=== PATIENT | male | born 1995 | race Caucasian/White ===

== ENCOUNTER 2024-05-16 07:17 | Outpatient (CLI) | payer OTHER ==
--- NOTE | 2024-05-16 15:20 | MRI Report ---
PROCEDURE: Thoracic Spine WO INDICATIONS: CHRONIC BACK PAIN TECHNIQUE: Noncontrast sagittal T1 spine echo and T2 fast spin echo, sagittal STIR, axial T1 and T2 fast spin ec ho through the thoracic spine. COMPARISON: None. FINDINGS: Image quality: Excellent. Alignment and Curvature: There is normal bony alignment. Bone Marrow: Marrow is of normal overall signal. No acute vertebral body compression fractures. Spinal Cord: Visualized spinal cord is normal in size and signal. Paraspinous Soft Tissues: No paravertebral masses. Miscellaneous: On axial images, central canal and foramina appear widely patent at all scanned level s. IMPRESSION: MRI thoracic spine without acute abnormalities or significant spondylitic changes. No si gnificant spinal canal or neuroforaminal stenosis. Reviewed by: Layton Zambrano MD on 05/16/2024 2:19 PM [facility] Approved by: Layton Zambrano MD on 05/16/2024 2:19 PM [facility] Station ID: [id number]
--- NOTE | 2024-05-16 15:38 | MRI Report ---
PROCEDURE: Lumbar Spine WO INDICATIONS: CHRONIC BACK PAIN TECHNIQUE: Noncontrast sagittal T1 spin echo and T2 fast echo, sagittal STIR, axial T1 and T2 fast spin echo thr ough the lumbar spine. In cases with scoliosis, additional coronal T2 fast spin echo may be performe d. COMPARISON: None. FINDINGS: Image quality: Diagnostic. Alignment and Curvature: There is normal bony alignment. Bone Marrow: Marrow is of normal overall signal. No acute vertebral body compression fractures. Spinal Cord: Conus medullaris terminates at the L2 level. Visualized cord demonstrates normal signa l and size. Paraspinous Soft Tissues: No paravertebral masses. T12-L1: No significant neuroforaminal stenosis or spinal canal stenosis. L1-L2: No significant neuroforaminal stenosis or spinal canal stenosis. L2-L3: No significant neuroforaminal stenosis or spinal canal stenosis. L3-L4: No significant neuroforaminal stenosis or spinal canal stenosis. L4-L5: Mild bilateral facet arthropathy. Minimal symmetric disc bulge. No significant spinal canal stenosis. Minimal bilateral neuroforaminal stenosis. L5-S1: Mild bilateral facet arthropathy. No significant neuroforaminal stenosis or spinal canal st enosis. IMPRESSION: Lumbar spine without acute abnormalities. Mild lower lumbar spondylosis most notable at L4-5 and L5-S 1. Reviewed by: Layton Zambrano MD on 05/16/2024 2:37 PM [facility] Approved by: Layton Zambrano MD on 05/16/2024 2:37 PM [facility] Station ID: [id number]
== END 2024-05-16 07:18 | disposition home or self-care (01) ==
LOC: DI 07:17
PROVIDERS: ATTEND Student in an Organized Health Care Education/Training Program
DX: M47.816 Spondylosis without myelopathy or radiculopathy, lumbar region (principal); M47.817 Spondylosis without myelopathy or radiculopathy, lumbosacral region